=== PATIENT | female | born 1970 | race African-American/Black ===

== ENCOUNTER 2024-01-22 00:39 | Emergency (ER) | payer SELFPAY ==
[~2024-01-22] VITALS: Ht 167.6 cm; Wt 61.0 kg
[2024-01-22 00:44] VITALS: BP 180/100; PULSE 98; RESP 16; TEMP 98.9; O2SAT 98
[2024-01-22] MEDS ORDERED: ACETAMINOPHEN 325MG TABLET PO ONE (01:15)
[2024-01-22] MEDS: SODIUM CHLORIDE 0.9% 1,000 ML IV ONE (03:22)
[2024-01-22 03:32] LABS: BASOPHILS % 0.3 % (0.0-2.0); DIFFERENTIAL COMMENT 0; HEMATOCRIT. 40.3 % (36.0-48.0); HEMOGLOBIN. 13.3 g/dL (12.0-16.0); LYMPHOCYTES % 17.1 % (20.0-50.0); MEAN CORPUSCULAR HEMOGLOBIN 27.2 pg (28.0-32.0); MEAN CORPUSCULAR VOLUME 82.4 fL (81.0-99.0); MEAN PLATELET VOLUME 7.5 fl (7.4-10.4); MONOCYTES % 5.9 % (2.0-8.0); NEUTROPHILS % 76.7 % (40.0-76.0); PLATELET 268 x1000/uL (130-400); RED BLOOD CELL COUNT 4.89 mill/uL (4.2-5.4); WHITE BLOOD COUNT 10.7 x1000/uL (4.5-11.0)
[2024-01-22 04:02] LABS: CALCIUM 9.6 mg/dL (8.7-10.4); CARBON DIOXIDE 27 mEq/L (21-32)
[2024-01-22 04:07] LABS: CREATININE 0.8 mg/dL (0.6-1.0); GLUCOSE 88 mg/dL (70-105); UREA NITROGEN BLOOD 10 mg/dL (9-23)
[2024-01-22 04:10] LABS: CHLORIDE 102 mEq/L (98-107); POTASSIUM 5.3 mEq/L (3.5-5.1); SODIUM 135 mEq/L (136-145)
[2024-01-22 04:16] LABS: ETHANOL BLOOD < 10 mg/dL (<10)
== END 2024-01-22 06:04 | disposition home or self-care (01) ==
LOC: ER 00:50
DX: M79.10 Myalgia, unspecified site (principal); F17.210 Nicotine dependence, cigarettes, uncomplicated; J45.909 Unspecified asthma, uncomplicated
CPT/HCPCS: 80048; 80320; 85025; 36415; 71045; 96360; 99284; J7030; G0480